=== PATIENT | female | born 1975 | race Caucasian/White ===

== ENCOUNTER 2017-09-09 18:16 | Inpatient (IN) | payer OTHER ==
[~2017-09-09] VITALS: Ht 162.6 cm; Wt 51.7 kg
--- NOTE | ~2017-09-09 | HC ---
[facility] [place] [address] CONSULTATION Name: GUY GARCIA Room #: 238-P ADM IN M.R.#: [id number] Admission: 09/09/17 Attend Phys: Monroe Lennon DO Discharge: Date of : 77 Report #: [id number] THIS REPORT FOR: //name// CC: MAICOL physician/PCP Monroe Lennon Patient of Dr. Fried. LOCATION: [facility] ICU, room 238. SUBJECTIVE: One of multiple apparent recent admissions for this 42-year-old white female with type 1 diabetes out of control with ketoacidosis. The patient is a very poor and limited historian. She is somewhat lethargic. She states she has had diabetes since age 13. She recently has been on some dose of lispro and bedtime Glargine, but is unable to provide the exact doses. In addition, she apparently ran out of insulin at some point in the past. PAST MEDICAL HISTORY: She has been "borrowing" a friend's insulin, but the type and amounts are not known at this time. The patient was admitted with decreased state of consciousness and the ketoacidosis. She has been treated with limited IV fluids and insulin drip, now discontinued with some normalization of blood sugar. Otherwise, there is no past or family history available at this time. CURRENT MEDICATIONS: Include IV glucose with potassium and potassium phosphate, enoxaparin, ondansetron, insulin as mentioned above and possibly other medication. OBJECTIVE: LABORATORY DATA: From admission glucose was 715. Current electrolytes shows sodium 136, potassium 4.4, chloride 109, CO2 19, BUN 10, creatinine 0.7. Arterial blood gas showed an initial pH of 7.128. Serum acetone has apparently not been determined. There is no more recent pH since treatment was instituted. PHYSICAL EXAMINATION: GENERAL: Frail 42-year-old white female who is minimally arousable. She is lethargic and slow to answer questions in a limited way. Height and weight is not yet available. VITAL SIGNS: Afebrile, heart rate 92 and regular, blood pressure 140/60. SKIN: Shows decreased turgor. PERRL. CHEST: Clear. HEART: Regular rhythm without murmurs, rubs or gallops. ABDOMEN: Benign. EXTREMITIES: Show no edema, cyanosis or clubbing. Peripheral pulses 2+ and equal bilaterally. [facility] [address] [address] CONSULTATION Name: GARCIA,GUYESTER GRIDER Room #: 238-P [facility].#: [id number] Admission: 09/09/17 Attend Phys: Monroe Lennon DO Discharge: Date of : 77 Report #: [id number] ASSESSMENT: 1. Diabetes mellitus, out of control with ketoacidosis and dehydration. 2. Apparent chronic poor compliance. PLAN: 1. Will evaluate prior controlled hemoglobin A1c. 2. Will continue hydration and utilize insulin as needed to correct ketosis as well as stabilize blood sugars as the patient returns to more normal oral intake. 3. Will attempt to educate the patient and the need for improved compliance and stable control of diabetes. Thank you very much for this consultation. I will continue to follow the patient with you for attempted management of diabetes mellitus. <ELECTRONICALLY SIGNED> By: Dung Farrell MD 09/10/17 [id number] Dung Farrell MD /nt
[~2017-09-09 18:16] MED LIST: HUMALOG100 UNIT/1; LANTUS
[2017-09-09 18:19] VITALS: BP 147/63
[2017-09-09 18:44] LABS: ABSOLUTE NEUTROPHILS 4.9 thou/uL (1.4-8.2); BASOPHILS 0.3 % (0.0-2.0); EOSINOPHILS 0.1 % (0.0-3.0); HEMATOCRIT 50.1 % (37.0-47.0); HEMOGLOBIN 16.2 gm/dL (12.0-15.0); LYMPHOCYTES 11.2 % (24.0-44.0); MCH 32.1 pg (26.0-34.0); MCHC 32.3 g/dL (28.0-37.0); MCV 99.4 fL (80.0-100.0); MONOCYTES 2.4 % (1.0-8.0); PLATELET COUNT 420 thou/uL (150-400); RBC 5.04 mil/uL (4.20-5.00); RDW 14.1 % (10.5-14.5); WBC 5.7 thou/uL (4.0-11.0)
[2017-09-09 18:50] LABS: BE(vivo) -17.4 mmol/L (-2 to +3); HCO3 10.7 mmol/L (22.0-26.0); PO2 VENOUS 61.3 mmHg (35.0-45.0)
[2017-09-09 18:56] LABS: CALCIUM 9.6 mg/dL (8.5-10.1); CREATININE 1.2 mg/dL (0.6-1.0); POTASSIUM 5.7 mmol/L (3.5-5.1)
[2017-09-09 18:58] LABS: ALBUMIN 4.6 g/dL (3.4-5.0); TOTAL BILIRUBIN 0.6 mg/dL (<0.1-1.0); TOTAL PROTEIN 9.3 g/dL (6.4-8.2)
[2017-09-09 19:07] LABS: URINE BILIRUBIN NEGATIVE (Negative); URINE BLOOD NEGATIVE (Negative); URINE CLARITY CLEAR; URINE COLOR YELLOW; URINE GLUCOSE-RANDOM* 3+ (Negative); URINE KETONES 3+ (Negative); URINE LEUKOCYTES-REFLEX NEGATIVE (Negative); URINE NITRITE-REFLEX NEGATIVE (Negative); URINE PROTEIN (DIPSTICK) NEGATIVE (Negative); URINE UROBILINOGEN 0.2 E.U./dl (0.2-1.0)
[2017-09-09 22:38] VITALS: BP 159/82
[2017-09-09 22:41] VITALS: BP 179/101
[2017-09-09 22:45] VITALS: BP 158/78
[2017-09-09 23:00] VITALS: BP 168/79
[2017-09-09 23:49] LABS: MAGNESIUM 2.2 mg/dL (1.8-2.4); PHOSPHORUS 4.7 mg/dL (2.5-4.9)
[2017-09-09 23:56] VITALS: BP 147/84
[2017-09-10] VITALS (44 sets, daily range): BP systolic 112–155; BP diastolic 65–89
[2017-09-10 01:44] LABS: ALBUMIN 3.1 g/dL (3.4-5.0); CALCIUM 8.4 mg/dL (8.5-10.1); CREATININE 0.9 mg/dL (0.6-1.0); MAGNESIUM 1.8 mg/dL (1.8-2.4); PHOSPHORUS 1.7 mg/dL (2.5-4.9)
[2017-09-10 01:56] LABS: POTASSIUM 4.2 mmol/L (3.5-5.1)
[2017-09-10 06:43] LABS: ALBUMIN 2.9 g/dL (3.4-5.0); CALCIUM 8.2 mg/dL (8.5-10.1); CREATININE 0.8 mg/dL (0.6-1.0); MAGNESIUM 1.8 mg/dL (1.8-2.4); PHOSPHORUS 2.4 mg/dL (2.5-4.9); POTASSIUM 4.5 mmol/L (3.5-5.1)
[2017-09-10 09:15] LABS: ALBUMIN 2.9 g/dL (3.4-5.0); CREATININE 0.7 mg/dL (0.6-1.0); MAGNESIUM 1.7 mg/dL (1.8-2.4); PHOSPHORUS 2.8 mg/dL (2.5-4.9); POTASSIUM 4.4 mmol/L (3.5-5.1)
[2017-09-10 10:29] LABS: AMP/METHAMP POSITIVE (Negative); BARBITURATES Negative (Negative); BENZODIAZEPINES Negative (Negative); COCAINE Negative (Negative); METHADONE Negative (Negative); OPIATES Negative (Negative); PCP Negative (Negative)
[2017-09-10 12:24] LABS: BE(vivo) -10.1 mmol/L (-2 to +3); HCO3 14.9 mmol/L (22.0-26.0); PO2 98.3 mmHg (80.0-100.0); pH 7.301 (7.360-7.450)
[2017-09-10 12:32] LABS: CALCIUM 8.3 mg/dL (8.5-10.1); CREATININE 0.7 mg/dL (0.6-1.0); MAGNESIUM 1.8 mg/dL (1.8-2.4)
[2017-09-10 16:54] LABS: CALCIUM 8.2 mg/dL (8.5-10.1); CREATININE 0.7 mg/dL (0.6-1.0); MAGNESIUM 1.7 mg/dL (1.8-2.4); PHOSPHORUS 2.2 mg/dL (2.5-4.9); POTASSIUM 4.4 mmol/L (3.5-5.1)
[2017-09-10 17:41] LABS: HCO3 15.6 mmol/L (22.0-26.0); PCO2 30.4 mmHg (35.0-45.0); PO2 99.2 mmHg (80.0-100.0); sO2 97.2 % (92.0-98.0)
[2017-09-10 17:42] LABS: pH 7.329 (7.360-7.450)
[2017-09-11] VITALS (9 sets, daily range): BP systolic 114–159; BP diastolic 75–98
[2017-09-11 02:08] LABS: ESTIMATED AVERAGE GLUCOSE 243 mg/dL (()); GLYCOHEMOGLOBIN (HGB A1C) 10.1 % (4.8-5.6)
[2017-09-11 02:58] LABS: ABSOLUTE NEUTROPHILS 3.3 thou/uL (1.4-8.2); EOSINOPHILS 1.5 % (0.0-3.0); HEMATOCRIT 40.2 % (37.0-47.0); LYMPHOCYTES 43.7 % (24.0-44.0); MCH 31.3 pg (26.0-34.0); MCHC 33.5 g/dL (28.0-37.0); POLYS 47.8 % (36.0-66.0); RDW 13.5 % (10.5-14.5); WBC 6.9 thou/uL (4.0-11.0)
[2017-09-11 03:04] LABS: HEMOGLOBIN 13.5 gm/dL (12.0-15.0); MCV 93.4 fL (80.0-100.0); PLATELET COUNT 343 thou/uL (150-400)
[2017-09-11 03:12] LABS: ALBUMIN 2.6 g/dL (3.4-5.0); CALCIUM 7.9 mg/dL (8.5-10.1); CREATININE 0.5 mg/dL (0.6-1.0); PHOSPHORUS 3.8 mg/dL (2.5-4.9); POTASSIUM 4.3 mmol/L (3.5-5.1); TOTAL BILIRUBIN 0.4 mg/dL (<0.1-1.0); TOTAL PROTEIN 5.3 g/dL (6.4-8.2)
[2017-09-11 14:13] LABS: C-PEPTIDE < 0.1 ng/mL (1.1-4.4)
[2017-09-12 04:00] VITALS: BP 147/81
[2017-09-12 07:50] VITALS: BP 149/88
[2017-09-12] MEDS ORDERED: LANTUS SUBQ (09:49)
[2017-09-12] MEDS ORDERED: HUMALOG100 UNIT/1 SUBQ (09:50)
[2017-09-12 10:00] VITALS: BP 149/88
== END 2017-09-12 10:54 | disposition home or self-care (01) | DRG 639 ==
LOC: ER 18:16 → EROBS 21:15 → ICU 21:15 → 3W 09-11 12:53 → ENTRNSPT 09-12 10:49 → EDTRNSPTSTS 09-12 10:52 → 3W 09-12 10:54
PROVIDERS: Emergency Medicine; Family Medicine; Internal Medicine Endocrinology, Diabetes & Metabolism; Nurse Practitioner Family
DX: E10.10 Type 1 diabetes mellitus with ketoacidosis without coma (principal); F17.210 Nicotine dependence, cigarettes, uncomplicated; E86.0 Dehydration; E10.65 Type 1 diabetes mellitus with hyperglycemia; F15.10 Other stimulant abuse, uncomplicated; F12.10 Cannabis abuse, uncomplicated
CPT/HCPCS: 10078; 10879